=== PATIENT | male | born 1985 | race Caucasian/White ===

== ENCOUNTER → 2017-12-09 | Outpatient (CLI) | payer SELFPAY ==
[~2017-12-09] MED LIST: AUVI-Q0.3 IM; NO HOME MEDICATIONS; NORCO 325 MG-7.1 TAB PO; PREDNISONE10 MG PO; PREDNISONE20 MG PO; ZOLOFT50 MG PO
[2017-12-09 14:04] LABS: BASO # 0.1 (0.0-0.2); BASO % 0.6 % (0.0-2.0); EOS # 0.4 (0.0-0.7); EOS % 4.7 % (0-4.0); GRAN # 4.9 (1.4-6.5); GRAN % 61.6 % (42.2-75.2); HEMATOCRIT 47.2 % (42.0-52.0); HEMOGLOBIN 15.3 g/dl (13.5-18.0); LYMPH # 1.9 (1.2-3.4); LYMPH % 24.5 % (20.0-51.0); MEAN CELL VOLUME 88 fl (80.0-100.0); MEAN CORPUSCULAR HEMOGLOBIN 28 pg (27.0-31.0); MEAN CORPUSCULAR HGB CONC 32 g/dl (33.0-37.0); MEAN PLATELET VOLUME 10.2 fl (7.4-10.4); MONO # 0.6 (0.1-0.6); MONO % 8.1 % (1.7-9.3); PLATELET COUNT 262 K/mm3 (130-400); RED BLOOD COUNT 5.38 M/mm3 (4.20-5.60)
[2017-12-09 14:14] LABS: ALBUMIN 4.7 gm/dL (3.5-5.0); BILIRUBIN,TOTAL 0.4 mg/dL (0.0-1.0); CALCIUM 9.9 mg/dL (8.4-10.2); CREATININE, serum 0.88 mg/dL (0.66-1.25); POTASSIUM 4.1 mmol/L (3.4-5.0); TOTAL PROTEIN 8.3 gm/dL (6.4-8.2)
== END ==
LOC: COL.LAB 13:23
PROVIDERS: Physician Assistant Medical
DX: R06.00 Dyspnea, unspecified (principal)

== ENCOUNTER → 2018-01-06 | Outpatient (CLI) | payer OTHER | LOC: COL.RAD 10:35 | DX: R06.00 Dyspnea, unspecified (principal) ==

== ENCOUNTER → 2018-01-20 | Outpatient (CLI) | payer OTHER | LOC: COL.PUL 01-14 14:20 | DX: R06.00 Dyspnea, unspecified (principal) ==

== ENCOUNTER 2021-02-01 11:38 | Emergency (ER) | payer SELFPAY ==
[~2021-02-01] VITALS: Ht 172.7 cm; Wt 136.4 kg
[2021-02-01 11:50] VITALS: BP 153/91; TEMP 97.6
[2021-02-01 15:18] LABS: BASO % 0.4 % (0.0-2.0); EOS # 0.3 (0.0-0.7); EOS % 2.9 % (0-4.0); GRAN # 5.6 (1.4-6.5); GRAN % 65.2 % (42.2-75.2); HEMATOCRIT 47.2 % (42.0-52.0); LYMPH % 23.6 % (20.0-51.0); MEAN CELL VOLUME 89 fl (80.0-100.0); MEAN CORPUSCULAR HEMOGLOBIN 28 pg (27.0-31.0); MEAN CORPUSCULAR HGB CONC 32 g/dl (33.0-37.0); MEAN PLATELET VOLUME 9.4 fl (7.4-10.4); MONO # 0.6 (0.1-0.6); MONO % 7.4 % (1.7-9.3); PLATELET COUNT 294 K/mm3 (130-400); RED BLOOD COUNT 5.32 M/mm3 (4.20-5.60); REDCELL DISTRIBUTION WIDTH-CV 13.2 % (11.5-14.5)
[2021-02-01 15:31] LABS: ALBUMIN 4.4 gm/dL (3.5-5.0); BILIRUBIN,TOTAL 0.6 mg/dL (0.0-1.0); CALCIUM 9.5 mg/dL (8.4-10.2); CREATININE, serum 0.83 (0.66-1.25); POTASSIUM 4.3 mmol/L (3.4-5.0)
[2021-02-01] MEDS ORDERED: TYLENOL 325MG325 MG PO (16:54)
[2021-02-01 17:33] VITALS: PULSE 74
== END 2021-02-01 17:34 | disposition home or self-care (01) ==
LOC: COL.ER 11:38
PROVIDERS: Emergency Medicine
DX: K46.9 Unspecified abdominal hernia without obstruction or gangrene (principal); K35.80 Unspecified acute appendicitis; T78.40XA Allergy, unspecified, initial encounter; R09.1 Pleurisy; Z90.49 Acquired absence of other specified parts of digestive tract
CPT/HCPCS: Q9967

== ENCOUNTER → 2022-04-02 | Day surgery (SDC) | payer OTHER ==
[~2022-04-02] VITALS: Ht 172.7 cm; Wt 139.7 kg
[~2022-04-02] MED LIST changes: +NORCO 325 MG-51 TAB PO; +PERCOCET 325 MG1 TA2 PO; +TYLENOL 325MG325 MG PO; +ZOFRAN ODT4 MG PO
[2022-04-02 09:56] VITALS: BP 136/84; PULSE 86; TEMP 98
[2022-04-02 16:00] VITALS: BP 143/92; PULSE 95; TEMP 97.7
[2022-04-02 16:15] VITALS: BP 125/87; PULSE 88
[2022-04-02 16:30] VITALS: BP 128/78; PULSE 95
[2022-04-02 16:43] VITALS: BP 135/88; PULSE 86; TEMP 98.4
--- NOTE | 2022-04-02 17:15 | NUR ---
1600 PT RETURNED TO [facility] VIA CART. ALERT AND ORIENTED. MONITORS ATTACHED. INTERVALS AND ALARMS SET. VSS. PT REPORTS NAUSEA AND FEELING "HOT". FAN, COOL WASH CLOTH, ICE PACKS PROVIDED. SPRITE PROVIDED. 1615 VSS. PT REPORTS NAUSEA. 1630 VSS. PT REPORTS NAUSEA. PT REFUSED ANTIEMETICS. 1645 EDUCATED PT ON ANTIEMETIC EFFECTS. PT AGREES TO TRY MEDICATION. OLYA PROVIDED AND EDUCATED PT TO SPLINT ABDOMEN. 1715 REVIEWED EDUCATION PACKET AND DISCHARGE INSTRUCTIONS WITH PT AND SPOUSE AND ANSWERED ALL QUESTIONS. OFFERED PT UP TO RESTROOM, PT REQUEST TO REST LONGER. 1720 REPORT GIVEN TO BRANDIE SIGALA.
--- NOTE | 2022-04-02 18:13 | NUR ---
1720 Report received from BRANDIE Magaña. 1730 Visit with pt and pt's in room. Pt reports feeling no nausea now following the Phenergan. Pt desires to go home. Pt's wants to make sure he doesn't feel nauseated or having pain. 1745 Pt sitting up on side of bed in preparation for ambulating to the restroom. 1750 Pt ambulates to restroom with "soreness" in abdomen. Pt continues to state that he doesn't have nausea, and he states that his pain is more tolerable as he walks. 1752 Pt voids and ambulates back to his discharge bay with this RN assist. Pt then dresses himself with his 's assist. Pt and agree that pt feels well enough to go home. 1813 Pt transferred out of hospital via wheelchair and BRANDIE Rose assist, to private vehicle driven by pt's .
== END ==
LOC: SDCO 09:17
DX: K43.0 Incisional hernia with obstruction, without gangrene (principal); E66.01 Morbid (severe) obesity due to excess calories; F17.220 Nicotine dependence, chewing tobacco, uncomplicated; Z68.41 Body mass index [BMI] 40.0-44.9, adult
CPT/HCPCS: C1781; J0330; J0360; J0690; J1100; J1885; J2405; J2550; J2704; J3010; J7120